=== PATIENT | male | born 1960 | race Caucasian/White ===

== ENCOUNTER → 2017-12-24 | Outpatient (CLI) | payer BC ==
[~2017-12-24] MED LIST: ASPIRIN 81M81 MG/TA2 PO; CENTRUM1 TAB PO; CEPHALEXIN500 M1 PO; CHANTIX 1MG1 MG PO; COUMADIN 5MG5 MG/TAB PO; COUMADIN 77.5 MG/TAB PO; DIOVAN/HCT 12.51 TAB PO; DOXYCYCLINE 10100 MG PO; GLUCOPHAGE XR500 M1 PO; LASIX 40MG TABL40 MG PO; LIPITOR20 MG PO; LOVENOX 100100 MG/ML SQ; LOVENOX 3030 MG/0.3 SQ; NORCO 325 MG-51 TAB PO; NORVASC 5MG5 MG/TAB PO; PRILOSEC 20MG20 MG PO; PROVENTIL0.09 MG/A1 IH; TOPROL XL100 MG PO; TYLENOL 325MG325 MG PO
== END ==
LOC: COL.PUL 08:00
DX: Z12.31 Encounter for screening mammogram for malignant neoplasm of breast (principal)

== ENCOUNTER → 2020-06-10 | Outpatient (CLI) | payer BC ==
[~2020-06-10] MED LIST changes: +ALDACTONE 25MG25 M1 PO; +AMARYL 2MG T2 MG/TAB PO; +LASIX 20MG TABL20 MG PO; +OXYGEN; +TOPROL XL200 MG PO; +TRELEGY ELLIPT1 EACH IH; +ZYLOPRIM 100MG100 MG PO
== END ==
LOC: ZCOL.LAB 13:07
DX: Z01.812 Encounter for preprocedural laboratory examination (principal); Z20.822 Contact with and (suspected) exposure to COVID-19

== ENCOUNTER 2021-05-10 11:21 | Inpatient (IN) | payer BC ==
[~2021-05-10] VITALS: Ht 190.5 cm; Wt 106.2 kg
[2021-05-10 12:08] LABS: BASO # 0.1 K/mm3 (0.0-0.2); BASO % 0.8 % (0.0-2.0); EOS # 0.4 K/mm3 (0.0-0.7); EOS % 5.5 % (0.0-4.0); GRAN # 4.9 K/mm3 (1.4-6.5); GRAN % 69.6 % (42.2-75.2); HEMATOCRIT 43.8 % (42.0-52.0); HEMOGLOBIN 14.4 g/dl (13.5-18.0); LYMPH # 0.9 K/mm3 (1.2-3.4); LYMPH % 12.6 % (20.0-51.0); MEAN CELL VOLUME 85 fl (80.0-100.0); MEAN CORPUSCULAR HEMOGLOBIN 28 pg (27-31); MEAN CORPUSCULAR HGB CONC 33 g/dl (33.0-37.0); MEAN PLATELET VOLUME 11.4 fl (7.4-10.4); MONO # 0.8 K/mm3 (0.1-0.6); MONO % 11.1 % (1.7-9.3); PLATELET COUNT 204 K/mm3 (130-400); RED BLOOD COUNT 5.14 M/mm3 (4.20-5.60)
[2021-05-10 12:23] LABS: ALBUMIN 3.2 gm/dL (3.5-5.0); BILIRUBIN,TOTAL 2.4 mg/dL (0.2-1.2); CALCIUM 9.3 mg/dL (8.4-10.2); CREATININE, serum 2.63 mg/dL (0.72-1.25); POTASSIUM 3.2 mmol/L (3.5-4.5); TOTAL PROTEIN 6.8 gm/dL (6.2-8.1)
[2021-05-10 12:31] LABS: TROPONIN-I 0.033 ng/mL (0.00-0.033)
[2021-05-10 13:01] LABS: COLLECTION METHOD CLEAN CATCH
[2021-05-10 13:07] LABS: PH 5 (5-8); SQUAMOUS EPITHELIAL 0-2 /hpf (0-10); URINE APPEARANCE Clear (CLEAR/HAZY); URINE BACTERIA None Seen /hpf (NONE SEEN); URINE BILIRUBIN Negative (NEGATIVE); URINE BLOOD Negative (NEGATIVE); URINE COLOR Yellow (YELLOW); URINE GLUCOSE 2+ (NEGATIVE); URINE KETONE Negative (NEGATIVE); URINE LEUKOCYTE ESTERASE Negative (NEGATIVE); URINE NITRATE Negative (NEGATIVE); URINE PROTEIN(semi-quant) Negative (NEGATIVE); URINE RBC 0-2 /hpf (0-2); URINE UROBILINOGEN Negative (NEGATIVE)
[2021-05-10 16:50] LABS: INR 1.6 (0.8-3.0)
[2021-05-10] MEDS ORDERED: PACERONE200 MG PO (23:45)
[2021-05-10] MEDS ORDERED: XANAX 0.5MG0.5 MG PO (23:45)
[2021-05-10] MEDS ORDERED: ELIQUIS 5MG PO (23:46)
[2021-05-10] MEDS ORDERED: AMBIEN 5MG TABLE5 MG PO (23:47)
[2021-05-10] MEDS ORDERED: JARDIANCE10 PO (23:48)
[2021-05-10] MEDS ORDERED: MOTRIN 800800 MG/TAB PO (23:48)
[2021-05-10] MEDS ORDERED: TOPROL XL 50MG50 MG PO (23:49)
[2021-05-10] MEDS ORDERED: KLOR-CON SPRIN10 MEQ PO (23:50)
[2021-05-10] MEDS ORDERED: DEMADEX 20MG20 M1 PO (23:50)
--- NOTE | 2021-05-11 00:45 | NUR ---
Admitted to medical floor from ER- VSS, has Lasix drip at 11cc/hr{11mg/hr},, urinal at bedside, understands importance of measuring urine. Alert/oriented x4, requesting a sandwich box tonight-given.
[2021-05-11 01:09] VITALS: BP 124/86; PULSE 89; TEMP 97.6
[2021-05-11 03:17] LABS: BASO # 0.1 K/mm3 (0.0-0.2); BASO % 0.9 % (0.0-2.0); EOS # 0.3 K/mm3 (0.0-0.7); EOS % 4.7 % (0.0-4.0); GRAN # 4.6 K/mm3 (1.4-6.5); GRAN % 69.6 % (42.2-75.2); HEMATOCRIT 43.6 % (42.0-52.0); LYMPH # 0.9 K/mm3 (1.2-3.4); LYMPH % 13.7 % (20.0-51.0); MEAN CELL VOLUME 85 fl (80.0-100.0); MEAN CORPUSCULAR HEMOGLOBIN 27 pg (27-31); MEAN CORPUSCULAR HGB CONC 32 g/dl (33.0-37.0); MEAN PLATELET VOLUME 11.2 fl (7.4-10.4); MONO # 0.7 K/mm3 (0.1-0.6); MONO % 10.8 % (1.7-9.3); PLATELET COUNT 193 K/mm3 (130-400); RED BLOOD COUNT 5.16 M/mm3 (4.20-5.60); REDCELL DISTRIBUTION WIDTH-CV 18.3 % (11.5-14.5)
[2021-05-11 03:34] LABS: CALCIUM 9.5 mg/dL (8.4-10.2); CREATININE, serum 2.33 mg/dL (0.72-1.25)
[2021-05-11 04:22] LABS: MAGNESIUM 2.2 mg/dL (1.6-2.6)
--- NOTE | 2021-05-11 04:36 | NUR ---
Pt not sleeping much even after ambien and xanax given earlier tonight-- has voided 450cc so far since up to medical from ER, lasix drip at 11cc/hr {11mg/hr} will call angelo MARSHALL with potassium of 3.0
[2021-05-11 04:44] VITALS: BP 135/66; PULSE 86; TEMP 97.7
[2021-05-11 09:05] VITALS: BP 120/89; PULSE 88; TEMP 97.7
--- NOTE | 2021-05-11 09:22 | NUR ---
YAIR met with the patient to discuss discharge plan. The patient lives alone in [place]. He reports independence with ADLs and does not have any DME. The patient's PCP is Dr. Elie Pa and he receives his medications from [facility]. He reports no difficulties obtaining his meds. The patient does not have a DPOA-HC in EMR, but he states that he does have one completed and that his PCP's office may have a copy. He reports that he designated his friend, Mitzy Caraballo (ph#[phone]). The patient reports that he is not , does not have any children, his parents are not alive, and he does not have any siblings. YAIR attempted to contact Dr. Pa's office to inquire if they have a copy. YAIR left them a voicemail. The patient plans on returning home upon discharge. No additional needs at this time. *Discharge plan: home*
--- NOTE | 2021-05-11 09:47 | NUR ---
Pt assessment complete. Pt sitting up in bed upon entry, he is A/O x4. His breathing is even and unlabored on RA. Pt denies SOB. No pain at this time. Denies N/T. Lasix infusing per orders. Pt denies any further needs, call light within reach.
[2021-05-11 11:48] VITALS: BP 124/86; PULSE 85; TEMP 97.9
--- NOTE | 2021-05-11 15:08 | NUR ---
Deangelo, with Dr. Pa, reports that they do not have a DPOA-HC on file for the patient.
[2021-05-11 16:14] VITALS: BP 118/78; PULSE 84; TEMP 97.4
--- NOTE | 2021-05-11 18:52 | NUR ---
Pt had uneventful day. Tolerated Lasix drip without issues. Good UOP. Denied any pain or concerns.
[2021-05-11 19:46] VITALS: BP 123/79; PULSE 83; TEMP 97.9
[2021-05-12 00:48] VITALS: BP 108/74; PULSE 79; TEMP 97.8
[2021-05-12 03:25] VITALS: BP 116/86; PULSE 80; TEMP 97.6
[2021-05-12 07:01] LABS: BASO # 0.1 K/mm3 (0.0-0.2); EOS # 0.3 K/mm3 (0.0-0.7); EOS % 5.2 % (0.0-4.0); GRAN # 3.9 K/mm3 (1.4-6.5); GRAN % 62.8 % (42.2-75.2); HEMOGLOBIN 13.8 g/dl (13.5-18.0); LYMPH # 1.1 K/mm3 (1.2-3.4); LYMPH % 17.6 % (20.0-51.0); MEAN CELL VOLUME 86 fl (80.0-100.0); MEAN CORPUSCULAR HEMOGLOBIN 28 pg (27-31); MEAN CORPUSCULAR HGB CONC 32 g/dl (33.0-37.0); MEAN PLATELET VOLUME 11.1 fl (7.4-10.4); MONO # 0.8 K/mm3 (0.1-0.6); MONO % 13.1 % (1.7-9.3); PLATELET COUNT 180 K/mm3 (130-400); REDCELL DISTRIBUTION WIDTH-CV 18.2 % (11.5-14.5)
[2021-05-12 07:10] LABS: ALBUMIN 3.1 gm/dL (3.5-5.0); BILIRUBIN,TOTAL 2.5 mg/dL (0.2-1.2); CALCIUM 9.4 mg/dL (8.4-10.2); CREATININE, serum 2.18 mg/dL (0.72-1.25); POTASSIUM 3.2 mmol/L (3.5-4.5); TOTAL PROTEIN 6.1 gm/dL (6.2-8.1)
[2021-05-12 08:06] VITALS: BP 112/84; PULSE 76; TEMP 97.6
--- NOTE | 2021-05-12 08:41 | NUR ---
Assessment completed, alert/oriented, vital signs stable, denies pain this morning, heart RRR/ pedal pulses are palpable, 2-3+ edema to BLE, patient reports overall he is feeling improved and edema is improving, does have redness to BLE but denies any tenderness and extrm. are not hot to touch, patient remains on eliquis, lungs are CTA and he denies feeling SOA, he is having good urine output and I have reminded him to use urnial each time so we can measure, he reported dumping 3 full jugs overnight because no one was emptying them for him, I instructed him to continue calling when they need emptied, potassium replacement per protocol, he is sitting up eating breakfast and denies other needs at this time
[2021-05-12 11:30] VITALS: BP 109/86; PULSE 83; TEMP 97.9
[2021-05-12 16:21] VITALS: BP 121/82; PULSE 78
--- NOTE | 2021-05-12 20:45 | NUR ---
Initial shift assessment done- denies pain, states will like his ambien and xanax at around 2200 tonight. Continues with edema to lower extremities but is improving- has Lasix drip at 11cc/hr{11mg/hr},, understands to use urinal so we can measure his urine-- 600cc emptied at this time. Tele on-paced.
[2021-05-12 22:02] VITALS: BP 113/83; PULSE 78; TEMP 97.9
--- NOTE | 2021-05-12 22:15 | NUR ---
Requesting Paul and Miller, also would like o2 at 2L/nc at this time-- he does have CPAP at night at home with 2L 02,, o2 put on at 2L/nc for pts comfort/request
[2021-05-13] VITALS (8 sets, daily range): BP systolic 107–120; BP diastolic 70–84; PULSE 74–85; TEMP 97.4–98.3
--- NOTE | 2021-05-13 01:00 | NUR ---
Did note a potassium level was drawn last night-result 3.7,, called Aleyda QUISPE regarding if she wants potassium given for this {according to protocol we would wait till am level to treat-- Aleyda said to just wait till morning labs and then follow the protocol
--- NOTE | 2021-05-13 05:35 | NUR ---
Quiet night-- has voided 1600cc samuel urine this shift , has slept for a few hours, Lasix drip remains at 11cc/hr.
--- NOTE | 2021-05-13 07:00 | NUR ---
Report received from JOSH Ricardo. PT in bed resting, denies needs, will continue to monitor.
[2021-05-13 07:54] LABS: BASO # 0.1 K/mm3 (0.0-0.2); BASO % 1.2 % (0.0-2.0); EOS # 0.4 K/mm3 (0.0-0.7); EOS % 5.5 % (0.0-4.0); GRAN % 61.6 % (42.2-75.2); HEMATOCRIT 43.8 % (42.0-52.0); LYMPH # 1.3 K/mm3 (1.2-3.4); LYMPH % 19.3 % (20.0-51.0); MEAN CELL VOLUME 86 fl (80.0-100.0); MEAN CORPUSCULAR HEMOGLOBIN 28 pg (27-31); MEAN CORPUSCULAR HGB CONC 32 g/dl (33.0-37.0); MEAN PLATELET VOLUME 11.5 fl (7.4-10.4); MONO # 0.8 K/mm3 (0.1-0.6); MONO % 12.1 % (1.7-9.3); PLATELET COUNT 184 K/mm3 (130-400); RED BLOOD COUNT 5.08 M/mm3 (4.20-5.60); REDCELL DISTRIBUTION WIDTH-CV 18.4 % (11.5-14.5)
[2021-05-13 08:18] LABS: CALCIUM 9.4 mg/dL (8.4-10.2); CREATININE, serum 2.04 mg/dL (0.72-1.25); MAGNESIUM 2.3 mg/dL (1.6-2.6); POTASSIUM 3.2 mmol/L (3.5-4.5)
--- NOTE | 2021-05-13 09:40 | NUR ---
Assessment charted. PT in bed resting, did not want to be disturbed but agreeable to care. Denies pain. BLE are +3 and feet are +2, redenned, pt states red is normal but not this red. INT ot LFA and RFA. Will continue to monitor.
--- NOTE | 2021-05-13 10:05 | NUR ---
Initial visit; Patient thanked Computer Systems Information Director for looking in on him and offering God's blessings. Patient had no spiritual needs he wished to address at this time.
--- NOTE | 2021-05-13 18:41 | NUR ---
Pt resting in bed most of day, states that he is very anxious to leave hospital and may leave AMA, wants to smoke cigarette. DIsucssed option for nicotene patch, nicotene gum but pt refuses, states he just wants cigarette, reivewed AMA policy and he states he will let us know when he is ready to leave. Otherwise good urine output over shift, taking PO well. Will give report to nigthshift nurse who will resume care.
--- NOTE | 2021-05-14 03:04 | NUR ---
ASSESSMENT COMPLETE FOR THIS SHIFT. PT SITTING ON THE SIDE OF THE BED LOOKING A BIT AGITATED. PT WANTED TO GO SMOKE, BUT ADVISED NOT TO. PT WANTED A SHOWER. BUT COULDN'T GET ONE RIGHT AWAY DUE TO STAFFING. PT WAS ABLE TO GET A LATE SHOWER. PT SEEMED MUCH HAPPIER AFTER HIS SHOWER. PT DENIED PAIN, PALPITATIONS, SOB OR DIZZINESS. PT STATES HE HAS NO OTHER NEEDS AT THIS TIME. CALL LIGHT WITHIN REACH.
[2021-05-14 03:55] VITALS: BP 124/76; PULSE 84; TEMP 98.4
[2021-05-14 07:13] VITALS: BP 115/76; PULSE 77; TEMP 97.4
[2021-05-14 07:14] LABS: BASO # 0.1 K/mm3 (0.0-0.2); BASO % 1.2 % (0.0-2.0); EOS # 0.3 K/mm3 (0.0-0.7); EOS % 4.1 % (0.0-4.0); GRAN # 5.2 K/mm3 (1.4-6.5); GRAN % 67.3 % (42.2-75.2); HEMATOCRIT 46.4 % (42.0-52.0); HEMOGLOBIN 14.6 g/dl (13.5-18.0); LYMPH # 1.3 K/mm3 (1.2-3.4); LYMPH % 16.5 % (20.0-51.0); MEAN CELL VOLUME 87 fl (80.0-100.0); MEAN CORPUSCULAR HEMOGLOBIN 27 pg (27-31); MEAN CORPUSCULAR HGB CONC 32 g/dl (33.0-37.0); MONO # 0.8 K/mm3 (0.1-0.6); MONO % 10.5 % (1.7-9.3); PLATELET COUNT 191 K/mm3 (130-400); RED BLOOD COUNT 5.32 M/mm3 (4.20-5.60); REDCELL DISTRIBUTION WIDTH-CV 18.4 % (11.5-14.5)
[2021-05-14 07:38] LABS: CALCIUM 9.7 mg/dL (8.4-10.2); CREATININE, serum 1.97 mg/dL (0.72-1.25); POTASSIUM 3.6 mmol/L (3.5-4.5)
--- NOTE | 2021-05-14 08:23 | NUR ---
Assessment completed, alert/oriented, vital signs stable, heart RRR/Paced on tele, BLE edema is improving but still 2+, continue on IV lasix with good diuresis/ UOP, lungs CTA/ some fine crackles to RLL this morning, patient reporst feeling improved overall, replacing potassium per protocol, he has had breakfast, denies other needs
[2021-05-14] MEDS ORDERED: TOPROL XL 25MG25 MG PO (10:51)
[2021-05-14] MEDS ORDERED: LASIX 40MG TABL40 MG PO (10:51)
[2021-05-14] MEDS ORDERED: K-TAB20 PO (10:52)
[2021-05-14 11:14] VITALS: BP 114/83; PULSE 80; TEMP 97.7
--- NOTE | 2021-05-14 12:43 | NUR ---
Discharge orders discussed with the patient, instructed to follow up with PCP in 1 week, instructed to follow up with cardiology as previously scheduled 06/01, IV sites x2 removed, tele removed, instructed patient to take meds as prescribed and discussed all new meds and med changes, instructed on AHA/ low sodium diet, provided CHF education material, insrtucted to have labs drawn 05/17/21 as ordered, leaving with family/friend, ATHLETIC EQUIPMENT MANAGER escorting him out by wheelchair
== END 2021-05-14 12:45 | disposition home or self-care (01) | DRG 291 ==
LOC: COL.ER 11:21 → MEDICAL 14:24
PROVIDERS: Physician Assistant; Student in an Organized Health Care Education/Training Program; ADMIT Internal Medicine
DX: I13.0 Hypertensive heart and chronic kidney disease with heart failure and stage 1 through stage 4 chronic kidney disease, or unspecified chronic kidney disease (principal); I50.23 Acute on chronic systolic (congestive) heart failure; N17.9 Acute kidney failure, unspecified; E78.5 Hyperlipidemia, unspecified; F17.210 Nicotine dependence, cigarettes, uncomplicated; N18.32 Chronic kidney disease, stage 3b; E11.22 Type 2 diabetes mellitus with diabetic chronic kidney disease; I42.8 Other cardiomyopathies; J44.9 Chronic obstructive pulmonary disease, unspecified; M10.9 Gout, unspecified; G47.33 Obstructive sleep apnea (adult) (pediatric); I08.1 Rheumatic disorders of both mitral and tricuspid valves; E87.6 Hypokalemia; K76.1 Chronic passive congestion of liver; I44.7 Left bundle-branch block, unspecified; Z20.822 Contact with and (suspected) exposure to COVID-19; Z79.84 Long term (current) use of oral hypoglycemic drugs; Z95.0 Presence of cardiac pacemaker; Z79.01 Long term (current) use of anticoagulants; Z86.711 Personal history of pulmonary embolism; Z86.718 Personal history of other venous thrombosis and embolism; Z23 Encounter for immunization
CPT/HCPCS: 99223-AI; 99232-AI; 99233-AI; 99239; J1815; J1940; J3480

== ENCOUNTER 2021-08-12 17:41 | Emergency (ER) | payer BC ==
[~2021-08-12 17:41] MED LIST changes: +AMBIEN 5MG TABLE5 MG PO; +DEMADEX 20MG20 M1 PO; +ELIQUIS 5MG PO; +JARDIANCE10 PO; +K-TAB20 PO; +KLOR-CON SPRIN10 MEQ PO; +MOTRIN 800800 MG/TAB PO; +PACERONE200 MG PO; +TOPROL XL 25MG25 MG PO; +TOPROL XL 50MG50 MG PO; +XANAX 0.5MG0.5 MG PO
[2021-08-12 18:15] VITALS: TEMP 97.4
[2021-08-12 19:05] VITALS: BP 114/76; PULSE 67
== END 2021-08-12 19:05 | disposition home or self-care (01) ==
LOC: COL.ER 17:41
DX: S80.02XA Contusion of left knee, initial encounter (principal); I48.91 Unspecified atrial fibrillation; F17.210 Nicotine dependence, cigarettes, uncomplicated; Z79.01 Long term (current) use of anticoagulants; W01.0XXA Fall on same level from slipping, tripping and stumbling without subsequent striking against object, initial encounter; Y93.01 Activity, walking, marching and hiking

== ENCOUNTER 2021-09-15 17:23 | Inpatient (IN) | payer BC ==
[~2021-09-15] VITALS: Ht 190.5 cm; Wt 90.8 kg
[2021-09-15 18:27] LABS: HEMATOCRIT 43.1 % (42.0-52.0); HEMOGLOBIN 14.6 g/dl (13.5-18.0); MEAN CELL VOLUME 88 fl (80.0-100.0); MEAN CORPUSCULAR HEMOGLOBIN 30 pg (27-31); MEAN CORPUSCULAR HGB CONC 34 g/dl (33.0-37.0); MEAN PLATELET VOLUME 11.3 fl (7.4-10.4); PLATELET COUNT 236 K/mm3 (130-400); REDCELL DISTRIBUTION WIDTH-CV 18.3 % (11.5-14.5)
[2021-09-15 18:53] LABS: ALBUMIN 3.5 gm/dL (3.5-5.0); BILIRUBIN,TOTAL 0.9 mg/dL (0.2-1.2); CALCIUM 9.3 mg/dL (8.4-10.2); CREATININE, serum 6.81 mg/dL (0.72-1.25); TOTAL PROTEIN 7.7 gm/dL (6.2-8.1)
[2021-09-15 18:54] LABS: TROPONIN-I 0.034 ng/mL (0.00-0.033)
[2021-09-15 18:55] LABS: POTASSIUM 6.7 mmol/L (3.5-4.5)
[2021-09-15 19:04] LABS: LYMPHOCYTE 5 % (20.0-51.0); NEUTROPHILS 93 % (42.0-75.2); PLATELET ESTIMATE NORMAL (NORMAL)
[2021-09-15 19:05] LABS: ANISOCYTOSIS 1+
[2021-09-15] MEDS ORDERED: DEMADEX 20MG20 M1 PO (19:42)
[2021-09-15 20:00] VITALS: BP 129/66; PULSE 60; TEMP 97.6
[2021-09-15 20:44] LABS: CALCIUM 9.4 mg/dL (8.4-10.2); CREATININE, serum 6.57 mg/dL (0.72-1.25); MAGNESIUM 2.5 mg/dL (1.6-2.6); PHOSPHOROUS 9.9 mg/dL (2.3-4.7)
[2021-09-15 20:45] LABS: POTASSIUM 6.2 mmol/L (3.5-4.5)
[2021-09-15 22:23] LABS: CALCIUM 9.7 mg/dL (8.4-10.2); CREATININE, serum 6.39 mg/dL (0.72-1.25); POTASSIUM 5.6 mmol/L (3.5-4.5)
--- NOTE | 2021-09-15 22:24 | NUR ---
Patient is resting in bed, alert and oriented x 4, VSS. states he does not entirely understand why he is here if he has been feeling very well. Lab leves and test explained. Telemetry in place, RA. Extremities cold. Assessment intake completed.
[2021-09-15 23:38] LABS: COLLECTION METHOD CLEAN CATCH
--- NOTE | 2021-09-15 23:49 | NUR ---
Pt stated that he does not wear CPAP at home. Pt also stated that he has lost almost 100 pounds and doesn't need it or the noc O2 anymore. I will continue to monitor O2 sats.
[2021-09-15 23:51] LABS: MUCOUS Present (NOT PRESENT); PH 5 (5-8); SQUAMOUS EPITHELIAL None Seen /hpf (0-10); URINE APPEARANCE Clear (CLEAR/HAZY); URINE BACTERIA None Seen /hpf (NONE SEEN); URINE BILIRUBIN Negative (NEGATIVE); URINE BLOOD Negative (NEGATIVE); URINE COLOR Yellow (YELLOW); URINE GLUCOSE 2+ (NEGATIVE); URINE KETONE Negative (NEGATIVE); URINE LEUKOCYTE ESTERASE Negative (NEGATIVE); URINE NITRATE Negative (NEGATIVE); URINE PROTEIN(semi-quant) Negative (NEGATIVE); URINE RBC None Seen /hpf (0-2); URINE UROBILINOGEN Negative (NEGATIVE)
[2021-09-16] VITALS (7 sets, daily range): BP systolic 97–128; BP diastolic 46–72; PULSE 60–109; TEMP 97.4–997.4
[2021-09-16 02:24] LABS: CALCIUM 9.2 mg/dL (8.4-10.2); CREATININE, serum 6.34 mg/dL (0.72-1.25); POTASSIUM 5.5 mmol/L (3.5-4.5); TROPONIN-I 0.034 ng/mL (0.00-0.033)
--- NOTE | 2021-09-16 03:02 | NUR ---
Received call from lab with K+ 5.5. Reported to Aleyda. Ordered 10 units insulin IV and dextrose. Provided. Patient complains of multiple labs. Educations provided about lab results.
[2021-09-16 04:55] LABS: CALCIUM 9.5 mg/dL (8.4-10.2); CREATININE, serum 6.29 mg/dL (0.72-1.25)
--- NOTE | 2021-09-16 06:34 | NUR ---
Patient has been unable to sleep due to the need of labs and meds. He continue getting sodium bicarbonate at 100ml/hr. He got a dose of insuline and dextrose. Las potassium level was 5. Report will be given to day RN.
[2021-09-16 07:28] LABS: CREATININE, serum 5.87 mg/dL (0.72-1.25); POTASSIUM 4.9 mmol/L (3.5-4.5)
[2021-09-16 07:29] LABS: CALCIUM 8.9 mg/dL (8.4-10.2)
[2021-09-16 08:50] LABS: CALCIUM 8.7 mg/dL (8.4-10.2); POTASSIUM 4.7 mmol/L (3.5-4.5)
[2021-09-16 09:21] LABS: CREATININE, serum 5.55 mg/dL (0.72-1.25)
--- NOTE | 2021-09-16 10:00 | NUR ---
PT LAYING ON RIGHT SIDE. PT VERY SHORT AND ANNOYED THIS AM. PT STATES "YOU PEOPLE DO NOT LET ME REST HERE. I NEED REST TO GET BETER." PT STATES THAT HE REFUSES TO GET HIS BLOOD DRAWN ANYMORE. "EVERY TWO HOURS IS OUT OF CONTROL, THIS MORININGS WILL BE THE LAST TIME THAT YOU WILL DRAW IT." DR INFORMED OF PT REFUSING. DR WAS ABLE TO CHANGE TIMES OF BLOOD WORK. PT STATES NO PAIN/CONCRNS OR NEEDS. "JUST LEAVE ME ALONE AND LET ME REST." CALL LIGHT IS WITHIN REACH.
--- NOTE | 2021-09-16 10:54 | NUR ---
YAIR met with the patient to discuss discharge plan. The patient lives alone in [place]. He reports independence with ADLs and does not have any DME. The patient's PCP is Dr. Elie Pa and he receives his medicatons at [facility]. He reports no difficulties obtaining his meds. The patient does not have a DPOA-HC in EMR, but he states that he does have one completed and that the form is at home. YAIR inquired who the patient's DPOA-HC is. The patient decliend to tell YAIR who is DPOA-HC and their information. He states that he does not want to bother them and that we already have his friend, Alexandria Stapleton (ph#[phone]), information on file. He states that Alexandria is not his DPOA-HC. YAIR informed him that we would like to have who he designated as a DPOA-HC in case of an emergency and to honor his wishes. The patient's refused to give SW their name. He states that he is not , does not have any children, his parents are not alive, and that he does not have any siblings. The patient plans on returning home upon discharge. No additional needs at this time. *Discharge plan: home*
--- NOTE | 2021-09-16 12:34 | NUR ---
Patricia: No caodaism preference Situation: Diagnostic Radiologist made a visit on rounds, PT was sit up in bed with head down. Background: PT seemed very uninterested in talking. He kept his head down and did not make eye contact. Assessment: Diagnostic Radiologist let PT know that if he needed anything to let his nurse know. Recommendation: Diagnostic Radiologist will follow up as needed.
[2021-09-16 16:30] LABS: CALCIUM 8.9 mg/dL (8.4-10.2); CREATININE, serum 5.21 mg/dL (0.72-1.25); POTASSIUM 4.2 mmol/L (3.5-4.5)
--- NOTE | 2021-09-16 18:15 | NUR ---
PT LAYING SUPINE IN BED. PT STATES "IM FINE AND DON'T NEED ANYTHING." PT REFUSING DINNER STATES "THE FOOD IS TERRIBLE, I DONT WANNA EAT IT." OFFERED SOMETHING ELSE AND PT REFUSED. CALL LIGHT IS WITHIN REACH.
[2021-09-16 23:41] LABS: ANION GAP 18 mmol/L (7-16); CALCIUM 9.3 mg/dL (8.4-10.2); CARBON DIOXIDE 17 mmol/L (22-29); CHLORIDE 105 mmol/L (98-107); CREATININE, serum 4.79 mg/dL (0.72-1.25); GLUCOSE 81 mg/dL (70-99); POTASSIUM 4.4 mmol/L (3.5-4.5); SODIUM 140 mmol/L (136-145)
[2021-09-16 23:45] LABS: BLOOD UREA NITROGEN > 125 mg/dL (8-26)
[2021-09-17 05:03] VITALS: BP 122/63; PULSE 62; TEMP 97.6
[2021-09-17 07:16] VITALS: BP 97/53; PULSE 60; TEMP 97.5
--- NOTE | 2021-09-17 09:49 | NUR ---
Patient sleeping upon entering the room. Appears to be in a very poor mood. Giving very short answers and not wanting to speak w/ staff much. Patient has call light w/in reach and has been encouraged to call if any needs arise. Currently denying any concerns.
[2021-09-17 11:42] VITALS: BP 126/75; PULSE 81; TEMP 97.7
[2021-09-17] MEDS ORDERED: DEMADEX 20MG20 M1 PO ×2 (11:53→13:10)
--- NOTE | 2021-09-17 14:04 | NUR ---
Patient discharged home. IV and telemetry discontinued by this RN. Patient denied any concerns at the time of discharge. All education/instructions discussed w/ patient; Patient verbalized understanding and signd appropriate paperwork.
== END 2021-09-17 13:40 | disposition home or self-care (01) | DRG 683 ==
LOC: COL.ER 17:23 → MEDICAL 19:10
PROVIDERS: Nurse Practitioner Family; Physician Assistant; Student in an Organized Health Care Education/Training Program; ADMIT Internal Medicine
DX: N17.9 Acute kidney failure, unspecified (principal); I42.8 Other cardiomyopathies; I50.22 Chronic systolic (congestive) heart failure; I13.0 Hypertensive heart and chronic kidney disease with heart failure and stage 1 through stage 4 chronic kidney disease, or unspecified chronic kidney disease; E87.1 Hypo-osmolality and hyponatremia; E87.2 Acidosis; N18.9 Chronic kidney disease, unspecified; F17.210 Nicotine dependence, cigarettes, uncomplicated; Z66 Do not resuscitate; E87.5 Hyperkalemia; N14.1 Nephropathy induced by other drugs, medicaments and biological substances; T50.2X5A Adverse effect of carbonic-anhydrase inhibitors, benzothiadiazides and other diuretics, initial encounter; E78.5 Hyperlipidemia, unspecified; I44.7 Left bundle-branch block, unspecified; G47.33 Obstructive sleep apnea (adult) (pediatric); J44.9 Chronic obstructive pulmonary disease, unspecified; E11.22 Type 2 diabetes mellitus with diabetic chronic kidney disease; E11.65 Type 2 diabetes mellitus with hyperglycemia; M10.9 Gout, unspecified; Z95.0 Presence of cardiac pacemaker; I25.2 Old myocardial infarction; Z86.718 Personal history of other venous thrombosis and embolism; Z86.711 Personal history of pulmonary embolism; Z79.01 Long term (current) use of anticoagulants; Z23 Encounter for immunization
CPT/HCPCS: 99233-AI; 99239; J0610; J1815; J7030

== ENCOUNTER → 2021-12-13 | Outpatient (CLI) | payer BC | LOC: COL.RAD 09:35 | DX: N17.9 Acute kidney failure, unspecified (principal); N18.4 Chronic kidney disease, stage 4 (severe); N26.1 Atrophy of kidney (terminal) ==